=== PATIENT | female | born 1950 | race Caucasian/White ===

== ENCOUNTER 2016-10-04 04:04 | Emergency (ER) | payer OTHER ==
[~2016-10-04] VITALS: Ht 157.5 cm; Wt 69.0 kg
[~2016-10-04 04:04] MED LIST: ADVAIR 250/501 DISK IH; ATELVIA PO; ATELVIA35 MG PO; B-COMPLEX-VITA1 EACH PO; Benadryl PO; CALCIUM 500 +1 EACH PO; CELEXA20 MG PO; CELEXA40 MG PO; Ecotrin PO; PREDNISONE10 MG PO; PREDNISONE20 MG; PRILOSEC20 MG PO; PRILOSEC40 MG PO; PROVENTIL,2.5 MG/3 M IH; PriLOSEC PO; ROBITUSSIN AC,T10 ML PO; SYNTHROID100 MCG PO; TRAMADOL HCL50 MG PO; VITAMIN D1000 UNIT PO; Zantac PO; celeXA PO
[2016-10-04 04:45] LABS: BASOPHIL COUNT 0.1 K/uL (0-0.1); EOSINOPHIL (%) 4.9 % (0-5); EOSINOPHIL COUNT 0.3 K/uL (0-0.3); HEMATOCRIT 35.9 % (36.0-46.0); IMMATURE GRANULOCYTE (%) 0.2 % (0.0-0.7); INSTRUMENT ABS NEUTROPHIL CT 2.7 K/uL; MCH 30.3 PG (29.0-34.0); MCHC 33.4 G/DL (30.0-36.0); MCV 90.7 FL (83-99); MEAN PLAT.VOLUME 10.2 uM^3 (9.5-12.4); MONOCYTE (%) 7.3 % (3-12); MONOCYTE COUNT 0.4 K/uL (0-0.8); NEUTROPHIL (%) 49.7 % (45-76); NEUTROPHIL COUNT 2.7 K/uL (1.8-6.4); PLATELET COUNT 198 K/uL (156-360); RBC DIS.WIDTH-CV 11.9 % (11.8-14.6); RBC DIS.WIDTH-SD 39.2 % (39-53); RED BLOOD COUNT 3.96 M/uL (3.80-5.20); WHITE BLOOD COUNT 5.5 K/uL (4.1-10.2)
[2016-10-04 04:59] LABS: CHLORIDE 107 mEq/L (99-109); POTASSIUM 4.3 mEq/L (3.7-5.4); SODIUM 140 mEq/L (136-147)
[2016-10-04 05:01] LABS: GLUCOSE 105 mg/dL (70-99)
[2016-10-04 05:02] LABS: ANION GAP 9 MEQ/L (2-14)
[2016-10-04 05:03] LABS: TOTAL BILIRUBIN 0.6 mg/dL (0.0-1.0)
[2016-10-04 05:05] LABS: ALKALINE PHOSPHATASE 56 IU/L (3-129); GFR ESTIMATE (CALCULATED) > 59 mL/min/
[2016-10-04 05:06] LABS: UREA NITROGEN (BUN) 26 mg/dL (9-23)
[2016-10-04 05:10] LABS: TROP-I INTERPRETATION NEGATIVE; TROPONIN-I < 0.01 ng/mL (0.0-0.30)
[2016-10-04 06:38] LABS: ADD MIUA? YES; BILIRUBIN NEGATIVE; BLOOD SMALL; COLOR YELLOW ((YELLOW)); GLUCOSE (STRIP) NEGATIVE; KETONES NEGATIVE; LEUKOCYTES NEGATIVE; NITRITE NEGATIVE; PROTEIN (STRIP) NEGATIVE; SPECIFIC GRAVITY 1.012 (1.000-1.030); UROBILINOGEN 0.2 MG/DL (0.2-1.0)
[2016-10-04 06:44] LABS: BACTERIA NONE SEEN /HPF; EPITHELIAL CELLS NONE SEEN /HPF; MUCUS TRACE /LPF; RED BLOOD CELLS 0-5 /HPF (0-5); UCUL ADDED? NO; WHITE BLOOD CELLS 0-5 /HPF (0-5)
[2016-10-04] MEDS ORDERED: ANTIVERT25 MG PO (06:54)
[2016-10-04 07:09] VITALS: BP 138/70
== END 2016-10-04 07:18 | disposition home or self-care (01) ==
LOC: EME → EDBD 04:04 → EME 07:18
PROVIDERS: Emergency Medicine
DX: R42 Dizziness and giddiness (principal); R11.0 Nausea; E03.9 Hypothyroidism, unspecified
CPT/HCPCS: 71020; 80053; 81003; 84484; 85025; 93005; 99281; 99285; J2405; J3360; J7030